=== PATIENT | male | born 1995 | race Hispanic/Latino ===

== ENCOUNTER 2018-04-25 15:30 | Emergency (ER) | payer OTHER ==
[~2018-04-25] VITALS: Ht 157.5 cm; Wt 70.0 kg
[2018-04-25 18:01] VITALS: BP 119/72
== END 2018-04-25 18:01 | disposition home or self-care (01) | DRG 605 ==
LOC: ED 15:30
DX: S20.212A Contusion of left front wall of thorax, initial encounter (principal); R07.81 Pleurodynia; W10.8XXA Fall (on) (from) other stairs and steps, initial encounter; W22.09XA Striking against other stationary object, initial encounter; Y92.818 Other transport vehicle as the place of occurrence of the external cause; Y99.0 Civilian activity done for income or pay

== ENCOUNTER → 2018-05-03 | Outpatient (REF) | payer OTHER | END | disposition home or self-care (01) | DRG 950 | LOC: DI 13:04 | PROVIDERS: ATTEND Physician Assistant | DX: S20.212D Contusion of left front wall of thorax, subsequent encounter (principal) ==

== ENCOUNTER 2018-12-18 17:40 | Emergency (ER) | payer OTHER ==
[~2018-12-18] VITALS: Ht 157.5 cm; Wt 70.0 kg
[2018-12-18 18:55] VITALS: BP 146/85
== END 2018-12-18 18:56 | disposition home or self-care (01) | DRG 556 ==
LOC: ED 17:40
DX: M25.512 Pain in left shoulder (principal); W18.30XA Fall on same level, unspecified, initial encounter; Y92.69 Other specified industrial and construction area as the place of occurrence of the external cause

== ENCOUNTER 2022-03-08 13:52 | Emergency (ER) | payer SELFPAY ==
[~2022-03-08] VITALS: Ht 157.5 cm; Wt 77.0 kg
[2022-03-08 14:19] VITALS: BP 140/98
[2022-03-08 14:30] VITALS: BP 134/101
[2022-03-08 15:00] VITALS: BP 134/78
[2022-03-08 15:30] VITALS: BP 135/86
[2022-03-08] MEDS ORDERED: KEFLEX500 MG PO (16:03)
[2022-03-08 16:10] VITALS: BP 135/86
== END 2022-03-08 16:20 | disposition home or self-care (01) | DRG 125 ==
LOC: ED 13:52
PROC: 0HQ1XZZ Repair Face Skin, External Approach (ICD-10-PCS; principal; 2022-03-08)
DX: S01.112A Laceration without foreign body of left eyelid and periocular area, initial encounter (principal); F17.200 Nicotine dependence, unspecified, uncomplicated; W22.8XXA Striking against or struck by other objects, initial encounter; Y92.89 Other specified places as the place of occurrence of the external cause; Y99.0 Civilian activity done for income or pay

== ENCOUNTER 2022-03-16 08:38 | Emergency (ER) | payer SELFPAY ==
[~2022-03-16] VITALS: Ht 157.5 cm; Wt 50.0 kg
[~2022-03-16 08:38] MED LIST: KEFLEX500 MG PO
[2022-03-16 09:16] VITALS: BP 134/89
== END 2022-03-16 09:31 | disposition home or self-care (01) | DRG 951 ==
LOC: ED 08:38
DX: Z48.02 Encounter for removal of sutures (principal)

== ENCOUNTER 2022-06-06 13:14 | Emergency (ER) | payer SELFPAY ==
[2022-06-06] VITALS (18 sets, daily range): BP systolic 102–164; BP diastolic 62–110
[~2022-06-06] VITALS: Ht 157.5 cm; Wt 68.0 kg
[2022-06-06] MEDS ORDERED: ALLERGY RELF10 M3 PO (16:52)
[2022-06-06] MEDS ORDERED: PREDNISONE50 MG PO (16:52)
[2022-06-06] MEDS ORDERED: EPIPEN 2-P0.3 MG/0.3 IM (16:52)
== END 2022-06-06 17:15 | disposition home or self-care (01) | DRG 607 ==
LOC: ED 13:14
DX: L50.0 Allergic urticaria (principal); F17.200 Nicotine dependence, unspecified, uncomplicated